=== PATIENT | male | born 2000 | race Hispanic/Latino ===

== ENCOUNTER 2022-01-23 11:14 | Emergency (ER) | payer MEDICAID ==
[~2022-01-23] VITALS: Ht 180.3 cm; Wt 65.8 kg
[2022-01-23] MEDS ORDERED: KETOROLAC 30MG VIAL (30MG/ML) IM ONE (12:00)
[2022-01-23] MEDS ORDERED: NAPR-1196 PO (13:58)
[2022-01-23] MEDS ORDERED: PRED5TAB PO (13:58)
[2022-01-23 14:17] VITALS: BP 111/75
== END 2022-01-23 14:23 | disposition home or self-care (01) ==
LOC: EDH 11:14
DX: M54.32 Sciatica, left side (principal); M25.552 Pain in left hip
CPT/HCPCS: 72100; 73502; 96372; 99284; J1885

== ENCOUNTER 2022-07-28 12:03 | Emergency (ER) | payer MEDICAID ==
[~2022-07-28] VITALS: Ht 180.3 cm; Wt 66.2 kg
[~2022-07-28 12:03] MED LIST: NAPR-1196 PO; PRED5TAB PO
[2022-07-28] MEDS ORDERED: NAPR-1196 PO (12:19)
[2022-07-28] MEDS ORDERED: PRED5TAB PO (12:19)
[2022-07-28 12:49] VITALS: BP 102/68
== END 2022-07-28 12:53 | disposition home or self-care (01) ==
LOC: EDH 12:03
DX: M54.32 Sciatica, left side (principal); Z79.899 Other long term (current) drug therapy